=== PATIENT | male | born 1980 ===

== ENCOUNTER 2018-08-05 08:51 | Emergency (ER) | payer OTHER ==
[~2018-08-05] VITALS: Ht 167.6 cm; Wt 68.0 kg
== END 2018-08-05 13:02 | disposition home or self-care (01) ==
LOC: ER 08:51
DX: B34.9 Viral infection, unspecified (principal); B96.0 Mycoplasma pneumoniae [M. pneumoniae] as the cause of diseases classified elsewhere

== ENCOUNTER 2019-08-01 09:56 | Emergency (ER) | payer OTHER ==
[~2019-08-01] VITALS: Ht 167.6 cm; Wt 68.0 kg
[2019-08-01] MEDS ORDERED: ATIVAN0.5 M1 (10:40)
[2019-08-01] MEDS ORDERED: ZOLOFT25 MG (10:40)
[2019-08-01] MEDS ORDERED: MUCINEX DM ER1 EAC1 PO (15:38)
[2019-08-01] MEDS ORDERED: XOFLUZA40 MG PO (15:38)
[2019-08-01] MEDS ORDERED: TESSALON PERLE100 M1 PO (15:40)
[2019-08-01] MEDS ORDERED: XOPENEX CO1.25 MG/0. IH (15:40)
[2019-08-01] MEDS ORDERED: SYMBICORT 16010.2 GM IH (15:40)
[2019-08-01] MEDS ORDERED: BUDESONIDE0.5 MG/2 M IH (15:40)
== END 2019-08-01 16:06 ==
LOC: ER 09:56
DX: J06.9 Acute upper respiratory infection, unspecified (principal)